=== PATIENT | female | born 1990 | race Caucasian/White ===

== ENCOUNTER 2021-10-10 16:27 | Emergency (ER) | payer OTHER ==
[~2021-10-10] VITALS: Ht 152.4 cm; Wt 50.3 kg
== END 2021-10-10 18:44 | disposition home or self-care (01) ==
LOC: ER 16:27
DX: R53.81 Other malaise (principal)

== ENCOUNTER 2022-04-10 18:50 | Inpatient (IN) | payer OTHER ==
[~2022-04-10] VITALS: Ht 152.4 cm; Wt 64.4 kg
[2022-04-11] MEDS ORDERED: PRENATAL CAPLE1 EAC1 PO (09:07)
[2022-04-11] MEDS ORDERED: ESCITALOPRAM OX10 MG (10:24)
== END 2022-04-13 14:12 | disposition home or self-care (01) | DRG 807 ==
LOC: OB/GYN 18:50 → LDR 18:50 → OB/GYN 04-11 15:02
PROVIDERS: ADMIT Obstetrics & Gynecology; ATTEND Obstetrics & Gynecology
PROC: 10E0XZZ Delivery of Products of Conception, External Approach (ICD-10-PCS; principal; 2022-04-11)
PROC: 0UQG7ZZ Repair Vagina, Via Natural or Artificial Opening (ICD-10-PCS; 2022-04-11)
PROC: 0W8NXZZ Division of Female Perineum, External Approach (ICD-10-PCS; 2022-04-11)
PROC: 4A1HXCZ Monitoring of Products of Conception, Cardiac Rate, External Approach (ICD-10-PCS; 2022-04-11)
DX: O71.4 Obstetric high vaginal laceration alone (principal); Z37.0 Single live birth; Z3A.39 39 weeks gestation of pregnancy; Z20.822 Contact with and (suspected) exposure to COVID-19